=== PATIENT | female | born 1985 | race Caucasian/White ===

== ENCOUNTER 2021-01-30 11:46 | Emergency (ER) | payer OTHER ==
[~2021-01-30] VITALS: Ht 175.3 cm; Wt 127.0 kg
[~2021-01-30 11:46] MED LIST: CELEXA40 MG PO; FLEXERIL PO; IBUPROFEN 800800 M1 PO; IBUPROFEN 800800 MG PO; NOHOMEMEDICATIONS; NORCO 5-325 TA1 EACH PO; WELLBUTRIN 100100 MG PO
[2021-01-30] MEDS ORDERED: TESTOSTERONE (12:06)
[2021-01-30] MEDS ORDERED: NAPROSYN500 MG PO (12:42)
[2021-01-30] MEDS ORDERED: AMOXICILLIN 50500 MG PO (12:42)
[2021-01-30 12:49] VITALS: BP 142/72
== END 2021-01-30 12:49 | disposition home or self-care (01) ==
LOC: M.ERS 11:46
DX: K04.7 Periapical abscess without sinus (principal); Z90.89 Acquired absence of other organs; Z88.8 Allergy status to other drugs, medicaments and biological substances